=== PATIENT | male | born 1970 | race Caucasian/White ===

== ENCOUNTER 2017-11-27 07:51 | Day surgery (SDC) | payer BC ==
[2017-11-21 09:14] VITALS: BMI 35.7
[~2017-11-27 07:51] MED LIST: DEXAMETHASONE SOD PHOSPHATE 10 MG/ML 1 ML VIAL IV ONE; HEPARIN SODIUM,PORCINE 5,000 UNIT/ML 1 ML VIAL SQ ONE; LACTATED RINGERS 1,000 ML IV SCH; LIDOCAINE 1% 20 ML VIAL (10MG/ML) FOR IV START INTRADERMA PRN; MIDAZOLAM 2 MG/2 ML VIAL IV PRN; ONDANSETRON 4 MG/2 ML VIAL IVP ONE; Pre Op ABX Message 1 EACH MISC MISCELLANE ONE; fentaNYL (PF) 50 MCG/ML 2 ML AMP IV PRN
[2017-11-27 08:55] VITALS: TEMP 97.6
--- NOTE | 2017-11-27 09:16 | P.GSHP ---
History of Present Illness H&P Date: 11/27/17 Chief Complaint: back lipoma this a 47-year-old male who presents today for excision of back lipoma. Patient developed a 10 cm lipoma on his back in the left paramedial position. Past Medical History Past Medical History: No Reported History History of Any Multi-Drug Resistant Organisms: None Reported Past Surgical History: Appendectomy Past Anesthesia/Blood Transfusion Reactions: No Reported Reaction Past Psychological History: No Psychological Hx Reported Smoking Status: Current some day smoker Past Alcohol Use History: Occasional Additional Past Alcohol Use History / Comment(s): Has been smoking for 5 yrs, 1 pack per week. Past Drug Use History: None Reported - Past Family History Father Family Medical History: Cancer Additional Family Medical History / Comment(s): Prostate cancer. Medications and Allergies Home Medications Medication Instructions Recorded Confirmed Type No Known Home Medications 11/21/17 11/27/17 History Allergies Allergy/AdvReac Type Severity Reaction Status Date / Time No Known Allergies Allergy Verified 11/27/17 08:55 Surgical - Exam Vital Signs Temp Pulse Resp BP Pulse Ox 97.6 F 79 18 186/107 95 11/27/17 08:54 11/27/17 08:54 11/27/17 08:54 11/27/17 08:54 11/27/17 08:54 - General well developed, no distress - Eyes PERRL, normal ocular movement - ENT normal pinna - Neck no masses - Respiratory normal expansion - Cardiovascular Rhythm: regular - Abdomen Abdomen: soft, non tender - Musculoskeletal 10 cm back lipoma Assessment and Plan Assessment: back lipoma. We'll perform excision.
[2017-11-27] MEDS ORDERED: MIDAZOLAM 2 MG/2 ML VIAL ONE (09:36)
[2017-11-27] MEDS ORDERED: fentaNYL (PF) 50 MCG/ML 2 ML AMP ONE (09:36)
[2017-11-27] MEDS ORDERED: PROPOFOL 10 MG/ML 20 ML VIAL IV ONE (09:36)
[2017-11-27] MEDS ORDERED: BUPIVACAIN-EPI 0.25%-1:200,000 30 ML VIAL SQ ONE (10:13)
--- NOTE | 2017-11-27 10:42 | P.OP ---
Date of Procedure: 11/27/17 Preoperative Diagnosis: Left back lipoma Postoperative Diagnosis: Left back lipoma Procedure(s) Performed: Excision of left back lipoma Anesthesia: MAC Surgeon: Paul Walters Estimated Blood Loss (ml): 10 Pathology: other (Back lipoma) Condition: stable Disposition: PACU Description of Procedure: Patient's placed on the operating table in the lateral position. He received IV sedation. His back was prepped and draped usual sterile fashion. The patient had a lipoma measured approximately 10 cm in diameter. The skin was incised after being anesthetized 1% local Xylocaine. Using blunt and sharp dissection with cautery the subcutaneous fat was divided. The lipoma was below the muscle. The muscle was retracted laterally and then the lipoma was dissected free. The Bovie hemostasis. The skin was closed in 2 layers using 0 Vicryl and 3-0 Monocryl. Dermabond dressings was applied. Patient top she will well and sent to recovery in stable condition.
[2017-11-27 10:43] VITALS: RESP 16
[2017-11-27 11:02] VITALS: BP 116/79; PULSE 92
== END 2017-11-27 11:25 | disposition home or self-care (01) ==
LOC: OR 07:51
PROVIDERS: ATTEND Surgery
DX: D17.1 Benign lipomatous neoplasm of skin and subcutaneous tissue of trunk (principal); I10 Essential (primary) hypertension; F17.210 Nicotine dependence, cigarettes, uncomplicated
CPT/HCPCS: 88304; 21931; J2250; J1644; J1100; J2405; J3010; J2704

== ENCOUNTER → 2020-09-28 | Outpatient (CLI) | payer BC ==
--- NOTE | 2020-09-29 08:01 | ECHOF ---
Referral Reason:R01.1 Cardiac Murmur MEASUREMENTS -------- HEIGHT: 162.6 cm WEIGHT: 102.1 kg BP: 176/93 RVIDd: 3.4 cm (< 3.3) IVSd: 1.2 cm (0.6 - 1.1) LVIDd: 5.1 cm (3.9 - 5.3) LVPWd: 1.2 cm (0.6 - 1.1) IVSs: 1.8 cm LVIDs: 3.2 cm LVPWs: 1.9 cm LA Diam: 3.9 cm (2.7 - 3.8) LAESV Index (A-L): 29.33 ml/m Ao Diam: 3.4 cm (2.0 - 3.7) AV Cusp: 1.9 cm (1.5 - 2.6) MV EXCURSION: 18.547 mm (> 18.000) MV EF SLOPE: 94 mm/s (70 - 150) EPSS: 0.6 cm MV E Mehran: 1.86 m/s MV DecT: 208 ms MV A Mehran: 1.15 m/s MV E/A Ratio: 1.62 AV maxP.86 mmHg AV meanP.80 mmHg RAP: 5.00 mmHg RVSP: 36.80 mmHg FINDINGS -------- Sinus rhythm. This was a technically adequate study. The left ventricular size is normal. There is borderline concentric left ventricular hypertrophy. Overall left ventricular systolic function is normal with, an EF between 60 - 65 %. The right ventricle is mildly enlarged. LA is midly dilated 29-33ml/m2. The right atrium is normal in size. Interatrial and interventricular septum intact. There is mild aortic valve sclerosis. There is mild aortic stenosis present. Peak/mean gradient a cross the Aortic Valve is 32.86mmHg / 17.80mmHg. The mitral valve leaflets are mildly thickened. Mild mitral annular calcification present. Mild-t o-moderate mitral regurgitation is present , predominately an anteriorly directed jet. Mild prolaps e of the posterior mitral valve leaflet. Mild tricuspid regurgitation present. There is mild pulmonary hypertension. The right ventricular systolic pressure, as measured by Doppler, is 36.80mmHg. Trace/mild (physiologic) pulmonic regurgitation. The aortic root size is normal. Normal inferior vena cava with normal inspiratory collapse consistent with estimated right atrial pre ssure of 5 mmHg. There is no pericardial effusion. CONCLUSIONS -------- 1. The left ventricular size is normal. 2. There is borderline concentric left ventricular hypertrophy. 3. Overall left ventricular systolic function is normal with, an EF between 60 - 65 %. 4. The right ventricle is mildly enlarged. 5. LA is midly dilated 29-33ml/m2. 6. There is mild aortic valve sclerosis. 7. There is mild aortic stenosis present. 8. Peak/mean gradient across the Aortic Valve is 32.86mmHg / 17.80mmHg. 9. The mitral valve leaflets are mildly thickened. 10. Mild mitral annular calcification present. 11. Upwc-ff-depurjae mitral regurgitation is present. 12. , predominately an anteriorly directed jet. 13. Mild prolapse of the posterior mitral valve leaflet. 14. Mild tricuspid regurgitation present. 15. There is mild pulmonary hypertension. 16. The right ventricular systolic pressure, as measured by Doppler, is 36.80mmHg. 17. Trace/mild (physiologic) pulmonic regurgitation. 18. There is no pericardial effusion. EXTERNAL GRINDER: Wendi Toribio RDCS
== END | disposition home or self-care (01) ==
LOC: RADECHMAIN 15:56
PROVIDERS: ATTEND Family Medicine
DX: I08.8 Other rheumatic multiple valve diseases (principal); I27.20 Pulmonary hypertension, unspecified
CPT/HCPCS: 93306

== ENCOUNTER → 2020-10-20 | Outpatient (CLI) | payer BC ==
--- NOTE | 2020-10-20 11:02 | NM ---
EXAMINATION TYPE: NM stress cardiolite complete DATE OF EXAM: 10/20/2020 COMPARISON: NONE HISTORY: Cardiac murmur TECHNIQUE: After the intravenous administration of 10 mCi Tc 99m Sestamibi - Rest images obtained 45 minutes post injection. The patient exercised using a COURTNEY protocol and 1 minute prior to peak ex ercise was injected with 25.4 mCi Tc 99m Sestamibi - Stress images obtained 30 minutes post injection . FINDINGS: Targeted heart rate was achieved during performance of the study. Review of stress and rest SPECT marin ges demonstrates no distinct perfusion abnormality. Suspect area artifact resulting in differential u ptake on stress and rest images involving the apex myocardium. Gated analysis shows normal wall motio n with an estimated left ventricular ejection fraction of 60 %. IMPRESSION: 1. Favor artifact involving a small area of reversibility involving the apex of myocardium over true stress-induced reversible ischemia correlate clinically.
--- NOTE | 2020-10-20 11:58 | EST ---
EXERCISE STRESS AGE: 50 SEX: M HT: 5'4" WT: 220 lbs. PROTOCOL: Rob STAGE: 3 DURATION OF EXERCISE: 9:30 HEART RATE REST: 96 BLOOD PRESSURE REST: 151/91 MAXIMUM HEART RATE ACHIEVED: 145 MAXIMUM BLOOD PRESSURE: 248/53 85% MPHR: 145 100% MPHR: 170 METS: 10.3 INDICATIONS: Chest pain. CLINICAL INFORMATION: STRESS DATA: Heart rate 96, pressure 151/91 mmHg. Baseline EKG showed sinus mechanism. The patient exercised on the treadmill according to Rob protocol for a total of 9 minutes and achieved 10.3 METS. Max heart rate was 145, which is about 85% of maximum predicted heart rate, and maximum blood pressure was 248/53 mmHg. Clinically the patient did not have any symptoms. The EKG did not show any significant ST or T-wave abnormalities concerning for severe underlying coronary artery disease. CONCLUSION: 1. Excellent exercise tolerance. 2. No symptoms of chest pain or chest discomfort in response to exercise. 3. Normal EKG in response to exercise. MMODL / IJN: [id number] /
== END | disposition home or self-care (01) ==
LOC: RADNMMAIN 07:47
PROVIDERS: ATTEND Family Medicine
DX: R01.1 Cardiac murmur, unspecified (principal); R07.9 Chest pain, unspecified
CPT/HCPCS: 93017; 78452; A9500